=== PATIENT | female | born 1950 | race Caucasian/White ===

== ENCOUNTER 2021-10-29 20:21 | Inpatient (IN) | payer MEDICARE, OTHER ==
[~2021-10-29] VITALS: Ht 152.4 cm; Wt 56.7 kg
--- NOTE | ~2021-10-29 | OP ---
[address] [address] OPERATIVE REPORT Name: PREETHI HEATH Room: [address] IN .R.#: [id number] Admission: 10/29/21 Attend Phys: Herrera Lomeli Discharge: Date of : 54 Report #: [id number] THIS REPORT FOR: cc: Harman Sloan MD, Anthony MD Haggard,Joseluis Madsen MD ~ DATE OF SURGERY: 10/31/2021 PREOPERATIVE DIAGNOSIS: A 6 mm and 2 mm proximal left ureteral stone. POSTOPERATIVE DIAGNOSIS: A 6 mm and 2 mm proximal left ureteral stone. PROCEDURES: Cystoscopy, left retrograde pyelogram, left ureteroscopy, holmium laser lithotripsy, ureteroscopic stone extraction, placement of left ureteral stent. STAFF SURGEON: Joseluis Gabriel MD PRINT PROJECT MANAGER: None. ANESTHESIA: General. ESTIMATED BLOOD LOSS: None. COMPLICATIONS: None. SPECIMENS: Left ureteral stone fragments. DRAINS: A 26 cm x 4.8-Tristanian left ureteral stent. INDICATIONS: The patient is a pleasant 71-year-old white female with history of kidney stones who presented with acute onset of left flank pain with a reported out as an 8 mm proximal left ureteral stone, but appears to be more like a 6 mm plus a 2 mm adjacent ureteral stone in the proximal left ureter with hydronephrosis. She also has bilateral nonobstructing renal calculi. She was counseled regarding treatment options, elected for definitive cystoscopy, left retrograde pyelogram, left ureteroscopy, possible holmium laser lithotripsy, possible placement of left ureteral stent. After the risks and benefits of the procedure explained, an informed consent was obtained. DESCRIPTION OF PROCEDURE: The patient was taken to the operating room, comfortably placed in the dorsal lithotomy position under adequate general anesthesia. She was sterilely prepped and draped in sterile standard fashion exposing only the genitalia. She received her antibiotic therapy as prescribed. Appropriate timeout was carried out and all were in agreement. A 22-Tristanian cystoscope with the obturator in place was blindly inserted into the urethra, [place] [address] OPERATIVE REPORT Name: PREETHI HEATH Room: [address] IN [facility].#: [id number] Admission: 10/29/21 Attend Phys: Herrera Lomeli Discharge: Date of : 54 Report #: [id number] the obturator removed, draining clear bella colored urine. Bladder was systematically viewed. Both ureteral orifices were identified normal. No bladder calculi seen or foreign body observed. Mucosa was smooth without any irregularity. A 5-Tristanian open-ended ureteral catheter placed in the left ureteral orifice and a retrograde pyelogram performed showing a normal caliber ureter all the way up to a filling defect in the proximal ureter corresponding to the level of the stone seen on CT scan. An 0.035 Glidewire was manipulated up the left ureter to the level of the stone. Initially met some resistance, but with manipulation, I was able to get beyond the stone into the level of kidney. The cystoscope was then removed and a 4.5-Tristanian tapered to a 6.5-Tristanian Moreno semi-rigid ureteroscope advanced through the urethra up the left ureter. I was able to get all the way up to the level of stone, lots of edema around the stone, not really mobile. 272 micron holmium laser fiber set at 6.4 benavides began to fragment the stone until we can mobilize within the lumen of the ureter. A 1.9-Tristanian nitinol basket was used to grab, hold of it and keep it from migrating, brought it down and I was able to continue laser it, until there were multiple fragments present. I then was able to clamp down the basket and gently remove it intact without difficulty. Repeat ureteroscopy was carried back out. There was one fragment that migrated back into the kidney could not quite to be reached, but another 2 mm fragment was seen at prior level of the stone. Repeat ureteroscopy was again carried out one third time, placed back through the urethra up the left ureter at the level of stone. One last remaining fragment actually was too small to grasp with a 1.9 nitinol basket. There was one little more proximally, I could see maybe 1-2 mm also to be out of range to grasp, which was same one saw at last pass. Semi-rigid scope was removed and a 26 cm x 4.8-Tristanian ureteral stent was put in place and positioned with a good coil in the compound upper pole roe and good coil in the bladder. The bladder was drained, cystoscope was then removed. She tolerated the procedure well. She was extubated in the operating room, transferred to [facility] with assistance and went to recovery in stable condition. Anticipate seeing her back in our office next week for cystoscopy, left stent removal and in 6 weeks with a renal ultrasound and a KUB. By: [id number] Cale Gabriel MD /génesis
[2021-10-29] MEDS ORDERED: BETIMOL5 ML TOP (20:29)
[2021-10-29] MEDS ORDERED: TYLENOL 8 HOUR650 MG PO (20:29)
[2021-10-29 20:30] VITALS: BP 219/81
[2021-10-29 21:22] LABS: URINE BILIRUBIN NEGATIVE (Negative); URINE BLOOD TRACE (Negative); URINE CLARITY CLEAR; URINE COLOR YELLOW; URINE GLUCOSE-RANDOM NEGATIVE (Negative); URINE KETONES NEGATIVE (Negative); URINE LEUKOCYTES-REFLEX TRACE (Negative); URINE NITRITE-REFLEX NEGATIVE (Negative); URINE PROTEIN TRACE (Negative); URINE SPECIFIC GRAVITY 1.025 (1.005-1.030); URINE UROBILINOGEN 0.2 E.U./dl (0.2-1.0)
[2021-10-29 21:32] LABS: HYALINE CASTS 0-3 Few /LPF (None Seen); SQUAMOUS 0-3 Few /LPF (0-3)
[2021-10-29 21:33] LABS: BACTERIA-REFLEX None Seen /HPF (None Seen); CRYSTALS None Seen /LPF (None Seen); MUCUS None Seen strn/LPF (None Seen); URINE RBC 3-10 Few /HPF (0-2); URINE WBC-REFLEX 6-15 Few /HPF (0-5)
[2021-10-29 22:33] LABS: ABSOLUTE EOSINOPHILS 0.2 thou/uL (0.0-0.7); ABSOLUTE LYMPHOCYTES 2.2 thou/uL (0.8-5.3); ABSOLUTE MONOCYTES 0.5 thou/uL (0.0-1.2); ABSOLUTE NEUTROPHILS 7.5 thou/uL (1.6-8.1); BASOPHILS 0.4 %; EOSINOPHILS 1.7 %; HEMATOCRIT 40.5 % (37.0-47.0); HEMOGLOBIN 13.2 gm/dL (12.0-15.0); LYMPHOCYTES 20.8 %; MCH 28.1 pg (26.0-34.0); MCHC 32.6 g/dL (28.0-37.0); MCV 86.2 fL (80.0-100.0); MONOCYTES 5.2 %; MPV 8.2 fl. (7.2-11.1); NUCLEATED RBCS 0 /100WBC; PLATELET COUNT* 250 thou/uL (150-400); POLYS 71.9 %; RDW-CV 13.9 % (10.5-14.5); WBC 10.4 thou/uL (4.0-11.0)
[2021-10-29 23:09] LABS: CALCIUM 8.8 mg/dL (8.5-10.1); CREATININE 1.3 mg/dL (0.6-1.3); POTASSIUM 3.7 mmol/L (3.5-5.1)
[2021-10-29 23:14] LABS: TOTAL BILIRUBIN 0.5 mg/dL (<0.1-1.0); TOTAL PROTEIN 7.4 g/dL (6.4-8.2)
[2021-10-30 04:39] VITALS: BP 164/89
[2021-10-30 09:15] VITALS: BP 149/48
[2021-10-30] MEDS ORDERED: CALTRATE 600+D1 EAC1 PO (09:41)
[2021-10-30] MEDS ORDERED: SYSTANE BALANCE10 ML EA. EYE (09:42)
[2021-10-30] MEDS ORDERED: ALEVE220 M1 PO (09:42)
[2021-10-30] MEDS ORDERED: VYZULTA5 ML OPHTHALMIC (09:43)
[2021-10-30] MEDS ORDERED: SALONPAS1 EACH TOP (09:44)
[2021-10-30] MEDS ORDERED: STOPAIN118 ML TOP (09:44)
[2021-10-30 13:15] VITALS: BP 167/71
[2021-10-30 14:47] VITALS: BP 167/71
[2021-10-30 17:28] VITALS: BP 126/61
[2021-10-30 17:28] LABS: CALCIUM 8.2 mg/dL (8.5-10.1); CREATININE 1.1 mg/dL (0.6-1.3); POTASSIUM 3.5 mmol/L (3.5-5.1)
[2021-10-30 17:31] LABS: MAGNESIUM 2.2 mg/dL (1.8-2.4); PHOSPHORUS* 2.2 mg/dL (2.5-4.9)
[2021-10-30 19:50] VITALS: BP 139/75
[2021-10-31] VITALS: BP 121/42
[2021-10-31 09:00] VITALS: BP 120/63
--- NOTE | 2021-10-31 11:21 | EKG ---
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: AO : 1950 Requested By: Lee Anne Order Number: [id number] Ольга MD: Ray Hilario Measurements Intervals [place] Rate: 74 P: 50 [place]: 155 QRS: 16 QRSD: 92 T: 32 QT: 424 QTc: 471 Interpretive Statements Sinus rhythm Probable left atrial enlargement RSR' in V1 or V2, probably normal variant No previous ECG available for comparison Electronically Signed On 10-31-2021 11:21:44 [employer] by Ray Hilario [email or web address] <ELECTRONICALLY SIGNED> By: Ray Hilario MD, [facility] 10/31/21 1121 Ray Hilario MD, [facility] /EPI
[2021-10-31 12:11] VITALS: BP 142/69
[2021-10-31 17:45] VITALS: BP 139/62
[2021-10-31 21:00] VITALS: BP 140/59
[2021-11-01] VITALS: BP 139/59
[2021-11-01 04:00] VITALS: BP 156/72
[2021-11-01 05:07] LABS: CALCIUM 8.6 mg/dL (8.5-10.1); CREATININE 1.1 mg/dL (0.6-1.3); PHOSPHORUS* 2.2 mg/dL (2.5-4.9); POTASSIUM 3.7 mmol/L (3.5-5.1)
[2021-11-01] MEDS ORDERED: FLOMAX0.4 MG PO (09:36)
[2021-11-01] MEDS ORDERED: CIPRO500 M1 PO (09:36)
[2021-11-01 10:11] VITALS: BP 156/72
[2021-11-01 10:30] VITALS: BP 140/64
== END 2021-11-01 12:03 | disposition home or self-care (01) | DRG 661 ==
LOC: M.ERS 20:21 → M.2W 23:48 → M.TBA-ER 23:48 → M.2W 10-30 15:14
PROVIDERS: Internal Medicine; Nurse Practitioner; Nurse Practitioner Family; ADMIT Internal Medicine; ATTEND Internal Medicine
PROC: 0TC78ZZ Extirpation of Matter from Left Ureter, Via Natural or Artificial Opening Endoscopic (ICD-10-PCS; principal; 2021-10-31)
PROC: 0T778DZ Dilation of Left Ureter with Intraluminal Device, Via Natural or Artificial Opening Endoscopic (ICD-10-PCS; principal; 2021-10-31)
PROC: BT1F1ZZ Fluoroscopy of Left Kidney, Ureter and Bladder using Low Osmolar Contrast (ICD-10-PCS; principal; 2021-10-31)
DX: N13.6 Pyonephrosis (principal); N17.9 Acute kidney failure, unspecified; I10 Essential (primary) hypertension; Z87.442 Personal history of urinary calculi; Z20.822 Contact with and (suspected) exposure to COVID-19; Z88.8 Allergy status to other drugs, medicaments and biological substances